=== PATIENT | male | born 1945 | race Caucasian/White ===

== ENCOUNTER 2018-12-05 11:11 | Inpatient (IN) | payer MEDICARE, OTHER ==
[~2018-12-05] VITALS: Ht 175.3 cm; Wt 102.0 kg
[~2018-12-05 11:11] MED LIST: ALPR1; ATEN50; ATOR20; DIOVAN; HYDACE5 PO
[2018-12-05 11:33] LABS: BASOPHILS ABSOLUTE AUTO 0.04 K/mm3 (0.00-0.23); BASOPHILS PERCENT AUTO 1 % (0-2); EOSINOPHILS ABSOLUTE AUTO 0.18 K/mm3 (0.00-0.68); EOSINOPHILS PERCENT AUTO 2 % (0-6); Hematocrit 43.2 % (37.0-53.0); Hemoglobin 14.3 g/dL (13.5-17.5); IMMATURE GRAN ABSOLUTE AUTO 0.04 K/mm3 (0.00-0.10); IMMATURE GRAN PERCENT AUTO 1 % (0-1); LYMPHOCYTES ABSOLUTE AUTO 1.03 K/mm3 (0.84-5.20); LYMPHOCYTES PERCENT AUTO 14 % (21-46); MONOCYTES ABSOLUTE AUTO 0.95 K/mm3 (0.16-1.47); MONOCYTES PERCENT AUTO 13 % (4-13); Mean Corpuscular HGB 32.8 pg (26.0-34.0); Mean Corpuscular HGB Conc 33.1 g/dL (31.5-36.5); Mean Corpuscular Volume 99 fL (80-100); Mean Platelet Volume 11.1 fL (9.1-12.4); NEUTROPHILS ABSOLUTE AUTO 5.37 K/mm3 (1.96-9.15); NEUTROPHILS PERCENT AUTO 71 % (41-73); Platelet Count 226 K/mm3 (150-400); RDW Coefficient Variation 13.7 % (11.7-14.2); RDW Standard Deviation 50.2 fL (35.1-46.3); Red Blood Cell Count 4.36 M/mm3 (4.30-5.90); White Blood Cell Count 7.61 K/mm3 (4.00-11.30)
[2018-12-05 11:50] LABS: Alanine Aminotransfer (ALT/SGP 21 U/L (12-78); Albumin, Blood 3.6 g/dL (3.4-5.0); Alk Phos 48 U/L (50-136); Anion Gap 6 mmol/L (6-16); Aspartate Aminotrans (AST/SGOT 13 U/L (12-37); Bilirubin, Total 0.5 mg/dL (0.1-1.0); Blood Urea Nitrogen 14 mg/dL (8-24); Bun/Creatinine Ratio 13.3 (12.0-20.0); CO2, Blood 26 mmol/L (21-32); Calcium, Blood 8.9 mg/dL (8.5-10.1); Chloride, Blood 106 mmol/L (98-108); Creatinine, Blood 1.05 mg/dL (0.60-1.20); Ethanol (Alcohol), Blood, Med <3 mg/dL; Globulin, Blood 3.7 g/dL (2.2-4.0); Glomerular Filtration Rate >60 (60-); Glucose, Blood 128 mg/dL (70-99); Potassium, Blood 4.4 mmol/L (3.5-5.5); Sodium, Blood 138 mmol/L (136-145); Total Protein, Blood 7.3 g/dL (6.4-8.2)
[2018-12-05 11:52] LABS: International Normalized Ratio 1.03; Prothrombin Time Results 10.9 Sec (9.7-11.5)
[2018-12-05 12:34] LABS: Source, Urine Clean Catch
[2018-12-05 12:41] LABS: Bilirubin, Urine Neg (Neg); Blood, Urine Neg (Neg); Glucose Qualitative, Urine Neg (Neg); Ketones, Urine Neg (Neg); Leukocyte Esterase, Urine Neg (Neg); Nitrite, Urine Neg (Neg); Protein, Urine 3+ (Neg); Urobilinogen, Urine NORM (Normal)
[2018-12-05 12:53] LABS: Appearance, Urine Clear (Clear); Color, Urine Yellow (P-Yellow)
[2018-12-05 12:55] LABS: Red Blood Cells, Urine 0-2 /hpf (0-2); White Blood Cells, Urine 0-2 /hpf (0-5)
[2018-12-05 12:56] LABS: Bacteria Rare /hpf; Squamous Epithelial Cells Rare /hpf (Few)
[2018-12-05] MEDS ORDERED: ATEN100 PO (13:39)
[2018-12-05] MEDS ORDERED: VARE1 PO (13:40)
[2018-12-05] MEDS ORDERED: TIZA4 PO (13:40)
[2018-12-05] MEDS ORDERED: ALPRAZOLAM0.5 MG PO (13:40)
[2018-12-05] MEDS ORDERED: LOSARTAN POTAS100 MG PO (13:41)
[2018-12-05] MEDS ORDERED: PRAV20 PO (13:41)
--- NOTE | 2018-12-05 18:04 | NUR ---
Echocardiogram completed.
--- NOTE | 2018-12-05 18:56 | NUR ---
SHIFT SUMMARY PT IS A NEW ADMISSION THIS AFTERNOON WITH A DIAGNOSIS OF CVA. PT HAS EXPRESSIVE APHASIA BUT PLEASANT. STATES "NO" WHEN ASKED IF IN PAIN. PT CONTINENT OF URINE AND USED URINAL WITH ASSISTANCE. ECHO DONE THIS EVENING AND DR. HENLEY INTO SEE PT THIS EVENING. TELE IN PLACE WITH RHYTHM OF AFIB IN 40-50'S. NO DISTRESS. BED ALARM ON FOR SAFETY. CALL LIGHT IN REACH. WILL CONTINUE TO MONITOR AND REPORT TO ONCOMING RN.
--- NOTE | 2018-12-05 21:39 | NUR ---
PCU MATH INSTRUCTOR ALERTED RN OF HR TRENDING DOWNWARD TO LOW OF 39 BPM (PREVIOUS WAS 40'S-50'S BPM) AND RECENT 3 SECOND PAUSE. HE REMAINS IN A.FIB AND HAD ATENOLOL IN ER PRIOR TO ADMISSION TO MEDICAL FLOOR. PT IS ASYMPTOMATIC OF CARDIAC DISTRESS AND DENIES PAIN, CP, DIZZYNESS/SYNCOPE WHEN OOB. MADE AWARE. NO NEW ORDERS AT THIS TIME BUT MD INTENDS TO REVIEW CHART AND CALL W/NEW ORDERS INDICATED. HE INSTRUCTED RN TO MONITOR PT CLOSELY AND ALERT W/ANY FURTHER ECTOPIES, PAUSES OR RYHTHM CHANGES OR IF PT BECOMES SYMPTOMATIC.
[2018-12-06 05:18] LABS: International Normalized Ratio 1.03; Prothrombin Time Results 10.9 Sec (9.7-11.5)
[2018-12-06 05:20] LABS: Anion Gap 7 mmol/L (6-16); Blood Urea Nitrogen 8 mg/dL (8-24); Bun/Creatinine Ratio 8.3 (12.0-20.0); CO2, Blood 29 mmol/L (21-32); Calcium, Blood 8.9 mg/dL (8.5-10.1); Chloride, Blood 104 mmol/L (98-108); Creatinine, Blood 0.96 mg/dL (0.60-1.20); Glomerular Filtration Rate >60 (60-); Glucose, Blood 113 mg/dL (70-99); Potassium, Blood 3.5 mmol/L (3.5-5.5); Sodium, Blood 140 mmol/L (136-145)
--- NOTE | 2018-12-06 05:33 | NUR ---
MADE AWARE OF ANOTHER 3.1 SECOND PAUSE AND HR CONTINUING TO TREND LOWER TO A RATE OF 30'S BUT SUSTAINING FOR LONGER PERIODS OF TIME PER TELEMETRY. PT REMAINS ASYMPTOMATIC OF CARDIAC DISTRESS, STATING NO TO Q'S REGARDING SOB OR PAIN. NEURO CHECKS ALSO REMAIN STABLE. MD INSTRUCTED STAFF TO CONTINUE MONITORING AND HAVE FOLLOW UP THIS AM. WILL ENSURE DAY STAFF ARE AWARE BUT WILL ALERT MD IF PT BECOMES SYMPTOMATIC.
--- NOTE | 2018-12-06 05:39 | NUR ---
SUMMARY: PT CONT'S TO HAVE EXPRESSIVE APHASIA AND IS AWARE OF SELF/FAMILY BUT HAS DIFFICULTY ANSWERING OTHER ORIENTATION Q'S. NEURO OBS ARE UNCHANGED T/O NOCTE. HE SEEMS TO ANSWER YES/NO Q'S CORRECTLY AND OCCASIONALLY SPEAKS IN SHORT SENTENCES BUT OFTEN BECOMES NONSENICAL W/OPEN ENDED Q'S. HE REPEATEDLY CURSES AND APPEARS TO BE FIXATED ON PHRASES SAYING "OH SHIT" AND "OH BOY". PT DENIES COMPLAINTS WHEN ATTEMPTING TO GAIN CLARIFICATION TO NEEDS. HE HAS EQUAL STREET CLEANER AND PEDAL STRENGTH WHILE IN BED BUT SEEMS TO LIST TO HIS R.SIDE OR BACKWARD W/R.SIDE WEAKNESS NOTED DURING ATTEMPTS TO STAND OR AMBULATE. PT TOLERATED USING FWW TO TOILET X1 THIS SHIFT BUT THEN WAS INSTRUCTED TO USE URINAL AT EOB FOR PT SAFETY. BED ALARM ON FOR OCCASIONAL IMPULSIVITY AND ATTEMPT OOB. SCHEDULED ATIVAN WAS RECIEVED AT START OF SHIFT BUT HE CONT'D TO BE ANXIOUS AND RESTLESS MOST OF THE NIGHT. CIWA IS STABLE AT 5 BUT HE HASN'T SLEPT AT ALL THIS SHIFT DESPITE ENCOURAGEMENT. PT ALSO CONT'S TO HAVE PERMISSIVE HYPERTENSION W/SBP>180'S BUT HR HAS TRENDED DOWNWARD. HE GOT LOW 34 BPM AND SUSTAINED 30'S AND 40'S BPM FOR LONGER PERIODS SHIFT PROGRESSED. HE ALSO HAD A 3 SEC AND 3.1 SEC PAUSE PER PCU PROCEDURES TECH. WAS MADE AWARE OF RATE CHANGE AND ECTOPIES BUT SINCE HE'S BEEN ASYMPTOMATIC OF ALL S/S CARDIAC DISTRESS HE INSTRUCTED TO HAVE DAY STAFF AND FOLLOW UP. NO ACUTE CHANGES OTHERWISE. WCTM AND REPORT TO DAY RN.
--- NOTE | 2018-12-06 16:46 | NUR ---
SHIFT SUMMARY PT WORKED WITH PHYSICAL THERAPY AND SPEECH THERAPY THIS AM. PT UP TO CHAIR FOR MEALS. PT HAS HAD TIMES WHERE HE'S EXPRESSIVE APHASIA HAS BEEN BETTER AND PT ABLE TO NAME THE HOSPITAL, CITY, DATE, ETC. BUT THEN DOES HAVE DIFFICULTY SPEAKING SOME WORDS AT TIMES. NO COMPLAINTS OF PAIN. PT HAS USED CALL LIGHT APPROPRIATELY AND HAS NOT TRIED TO GET OUT OF BED. BED ALARM ON FOR SAFETY. NO ACUTE CHANGES THIS SHIFT. CALL LIGHT IN REACH. WILL CONTINUE TO MONITOR AND REPORT TO ONCOMING RN.
--- NOTE | 2018-12-06 22:16 | NUR ---
PT HAD THE FOLLOWING 2150 2.3 SEC PAUSE ON TELEMETRY 2151 3.2 SEC PAUSE ON TELEMETRY; 178/76, 97.2--40--20, ASYMPTOMATIC. 2215 DR ALEMAN (TMD TEACHER FOR DR HENLEY ADVISED WITH NO ORDERS). CONTINUE TO MONITOR.
--- NOTE | 2018-12-07 03:33 | NUR ---
0320 PATIENT HAD OCCURENCES X 10 OF 2.6--3.[address] SPO[address] ALEMAN WITH ORDERS FOR CARDIOLOGY CONSULT.
--- NOTE | 2018-12-07 04:06 | NUR ---
12[address] CON[address]ULT CALLED FOR DR MARGO DE LA PAZ VIA ANSWERING SERVICE FOR TODAY, CHARGE NURSE, DENG GRIMM RN ADVISED WHOM ALSO NOTIFIED BUSINESS ANALYST CONSULTANT.
[2018-12-07 05:45] LABS: International Normalized Ratio 1.14; Prothrombin Time Results 11.9 Sec (9.7-11.5)
--- NOTE | 2018-12-07 06:33 | NUR ---
SHIFT SUMMARY: 73 Y/O OBESE MALE RESTED COMFORTABLY ALL SHIFT, PATIENT HAD NUMEROUS EPISODES VIA TELEMETRY OF PAUSES RANGING FROM 2.0--3.[address] MARIN NOTIFIED X 2 WITH ORDERS FOR CARDIOLOGY CONSULT TODAY. TELEMETRY REFLECTS A/FIB WITH HEART RATE RANGING FROM 36 TO MID 50'S, PT IS ASYMPMATIC, EXPRESSIVE APHASIA NOTED, DENIES PAIN OR NAUSEA, RIGHT HAND BUNDLER SEASONAL GREENERY WEAKER THAN LEFT, DENIES PAIN OR NAUSEA, CIWA SCORE 2, VOIDING CLEAR YELLOW FLUID VIA URINAL, BED ALARM APPLIED, BED LOW POSITION, CALL LIGHT AT SIDE.
--- NOTE | 2018-12-07 19:11 | NUR ---
PT. LYING IN BED WATCHING TV. EATING WELL TODAY. PT. STILL HAVING PROBLEMS WITH THE EXPRESSIVE APHASIA. RISIDUAL WEAKNESS OF RIGHT SIDE. TAKES MEDS WELL NO CHOKING OR COUGHING
--- NOTE | 2018-12-08 04:42 | NUR ---
SHIFT SUMMARY: 73 Y/O MALE RESTED COMFORTABLY ALL SHIFT WITH TELEMETRY REFLECTING FREQUENT PAUSES ALL SHIFT VARYING BETWEEMN 2.3--3.2 SECONDS WITH HEART RATE 40-52 IN A/FIB PER BATCH ATTENDANT MARQUIS, DENIES PAIN OR NAUSEA, EXPRESSIVE APHASIA NOTED, NPO AFTER MIDNIGHT FOR PENDING CARDIOLOGY PROCEDURE TODAY; BED ALARM APPLIED, BED LOW POSITION, CALL LIGHT AT SIDE.
[2018-12-08 05:09] LABS: International Normalized Ratio 1.27; Prothrombin Time Results 13.2 Sec (9.7-11.5)
[2018-12-08] MEDS ORDERED: ACET325 PO (10:49)
[2018-12-08] MEDS ORDERED: HYDR10 PO (10:50)
[2018-12-08] MEDS ORDERED: AMLO5 PO (10:50)
[2018-12-08] MEDS ORDERED: ASPI81CH PO (10:51)
[2018-12-08] MEDS ORDERED: HYDCHL25 PO (10:51)
[2018-12-08] MEDS ORDERED: CLOP75 PO (10:51)
[2018-12-08] MEDS ORDERED: Coumadin5 MG PO (10:52)
--- NOTE | 2018-12-08 16:15 | NUR ---
PT. DISCHARGED HOME ON H.H. ZIOPATCH PLACED BY [facility] JUST BEFORE THE PATIENT LEFT.PT. TO FOLLOW UP WITH PCP AND HAVE HAVE LABS DRAWN PRIOR TO APPT. PT. SPOUSE TOOK PATIENT HOME.
== END 2018-12-08 16:19 | disposition home health service (06) | DRG 65 ==
LOC: ER 11:11 → ERHOLD 11:12 → MEDS 15:52 → ERHOLD 15:53 → MEDS 16:45 → ENPENDDIS 12-08 10:00 → MEDS 12-08 16:19
PROVIDERS: Emergency Medicine; ADMIT Hospitalist
DX: I63.9 Cerebral infarction, unspecified (principal); G81.91 Hemiplegia, unspecified affecting right dominant side; I25.110 Atherosclerotic heart disease of native coronary artery with unstable angina pectoris; R47.01 Aphasia; I48.91 Unspecified atrial fibrillation; E78.5 Hyperlipidemia, unspecified; I10 Essential (primary) hypertension; R91.1 Solitary pulmonary nodule; F41.9 Anxiety disorder, unspecified; F10.20 Alcohol dependence, uncomplicated; Z87.891 Personal history of nicotine dependence; Z79.899 Other long term (current) drug therapy; Z95.1 Presence of aortocoronary bypass graft
CPT/HCPCS: 36415; 51701; 70450; 70496; 70498; 71046; 71250; 80048; 80053; 81001; 85025; 85610; 85730; 92507; 92523; 93005; 93010; 93306; 97112; 97116; 97162; 97530; 99285-25; G0480; Q9967

== ENCOUNTER 2019-03-07 02:07 | Observation (INO) | payer OTHER ==
[~2019-03-07] VITALS: Ht 175.3 cm; Wt 89.3 kg
[~2019-03-07 02:07] MED LIST changes: +ACET325 PO; +ALPRAZOLAM0.5 MG PO; +AMLO5 PO; +ASPI81CH PO; +ATEN100 PO; +CLOP75 PO; +Coumadin5 MG PO; +HYDCHL25 PO; +HYDR10 PO; +LOSARTAN POTAS100 MG PO; +PRAV20 PO; +TIZA4 PO; +VARE1 PO
[2019-03-07] MEDS ORDERED: PRAV20 PO (02:22)
[2019-03-07] MEDS ORDERED: LOSARTAN POTAS100 MG PO (02:22)
[2019-03-07] MEDS ORDERED: CLOP75 PO (02:22)
[2019-03-07] MEDS ORDERED: HYDCHL25 PO (02:22)
[2019-03-07] MEDS ORDERED: AMLO10 PO (02:22)
[2019-03-07] MEDS ORDERED: Aspirin EC81 MG PO (02:22)
[2019-03-07] MEDS ORDERED: CLARITIN10 MG PO (02:23)
[2019-03-07] MEDS ORDERED: TESSALON PERLE100 MG PO (02:23)
[2019-03-07] MEDS ORDERED: Bactrim Ds Tab1 EACH PO (02:23)
[2019-03-07] MEDS ORDERED: WARF5 PO (02:23)
[2019-03-07] MEDS ORDERED: CLON.1 PO (02:24)
[2019-03-07] MEDS ORDERED: Buspirone HCl15 MG PO (02:24)
[2019-03-07 03:00] LABS: BASOPHILS ABSOLUTE AUTO 0.01 K/mm3 (0.00-0.23); BASOPHILS PERCENT AUTO 0 % (0-2); EOSINOPHILS ABSOLUTE AUTO 0.07 K/mm3 (0.00-0.68); EOSINOPHILS PERCENT AUTO 1 % (0-6); Hematocrit 38.4 % (37.0-53.0); Hemoglobin 13.4 g/dL (13.5-17.5); IMMATURE GRAN ABSOLUTE AUTO 0.02 K/mm3 (0.00-0.10); IMMATURE GRAN PERCENT AUTO 0 % (0-1); LYMPHOCYTES ABSOLUTE AUTO 1.05 K/mm3 (0.84-5.20); LYMPHOCYTES PERCENT AUTO 14 % (21-46); MONOCYTES ABSOLUTE AUTO 0.78 K/mm3 (0.16-1.47); MONOCYTES PERCENT AUTO 10 % (4-13); Mean Corpuscular HGB 31.8 pg (26.0-34.0); Mean Corpuscular HGB Conc 34.9 g/dL (31.5-36.5); Mean Corpuscular Volume 91 fL (80-100); NEUTROPHILS ABSOLUTE AUTO 5.85 K/mm3 (1.96-9.15); NEUTROPHILS PERCENT AUTO 75 % (41-73); Platelet Count 278 K/mm3 (150-400); RDW Coefficient Variation 13.2 % (11.7-14.2); Red Blood Cell Count 4.22 M/mm3 (4.30-5.90); White Blood Cell Count 7.78 K/mm3 (4.00-11.30)
[2019-03-07 03:20] LABS: Alanine Aminotransfer (ALT/SGP 22 U/L (12-78); Albumin, Blood 4.1 g/dL (3.4-5.0); Albumin/Globulin Ratio 1.1 (0.8-1.8); Alk Phos 56 U/L (50-136); Anion Gap 10 mmol/L (6-16); Aspartate Aminotrans (AST/SGOT 14 U/L (12-37); Bilirubin, Total 0.5 mg/dL (0.1-1.0); Blood Urea Nitrogen 14 mg/dL (8-24); CO2, Blood 22 mmol/L (21-32); Calcium, Blood 8.8 mg/dL (8.5-10.1); Chloride, Blood 96 mmol/L (98-108); Creatinine, Blood 1.17 mg/dL (0.60-1.20); Globulin, Blood 3.8 g/dL (2.2-4.0); Glomerular Filtration Rate >60 (60-); Glucose, Blood 118 mg/dL (70-99); Potassium, Blood 3.4 mmol/L (3.5-5.5); Sodium, Blood 128 mmol/L (136-145); Total Protein, Blood 7.9 g/dL (6.4-8.2); Troponin I 0.018 ng/mL (0.000-0.040)
[2019-03-07 03:41] LABS: Prothrombin Time Results >90.0 Sec (9.7-11.5)
[2019-03-07 03:44] LABS: International Normalized Ratio No Calc
[2019-03-07 04:23] LABS: Adenovirus Not Detected (NOT DETECT); Bordetella pertussis Not Detected (NOT DETECT); Chlamydophila pneumoniae Not Detected (NOT DETECT); Coronavirus 229E Not Detected (NOT DETECT); Coronavirus HKU1 Not Detected (NOT DETECT); Coronavirus NL63 Not Detected (NOT DETECT); Coronavirus OC43 Not Detected (NOT DETECT); Human Metapneumovirus Not Detected (NOT DETECT); Human Rhinovirus/Enterovirus Not Detected (NOT DETECT); Influenza A Not Detected (NOT DETECT); Influenza A/2009-H1 Not Detected (NOT DETECT); Influenza A/H1 Not Detected (NOT DETECT); Influenza A/H3 Not Detected (NOT DETECT); Influenza B Not Detected (NOT DETECT); Mycoplasma pneumoniae Not Detected (NOT DETECT); Parainfluenza Virus 1 Not Detected (NOT DETECT); Parainfluenza Virus 2 Not Detected (NOT DETECT); Parainfluenza Virus 3 Not Detected (NOT DETECT); Parainfluenza Virus 4 Not Detected (NOT DETECT); Respiratory Syncytial Virus Not Detected (NOT DETECT)
[2019-03-07 12:53] LABS: International Normalized Ratio 3.2
[2019-03-07 15:31] LABS: Prothrombin Time Results 30.5 Sec (9.7-11.5)
--- NOTE | 2019-03-07 18:15 | NUR ---
SHIFT NOTE PT WAS ADMITTED FROM ER THIS AM WITH DX OF HEMOPTYSIS R/T HIGH INR X2 WEEKS. PT IS A/O X4, DOES SEEM TO HAVE A BIZARRE AFFECT. DENEIS CP OR SOB, DID HAVE 1 EPISDOE OF HEMOPTYSIS THIS AM ONLY. LS DIMENISHED T/O. VSS. SKIN PWD AND INTACT. PT UP TO BATHROOM WITH SBS c FWW. DENIES ANY PAIN. PT OTHERWISE HAS WATCHED TV T/O THE DAY.
--- NOTE | 2019-03-07 18:54 | NUR ---
REPORT TO PARAS CASTELLANOS
--- NOTE | 2019-03-07 20:26 | NUR ---
PT RESTING COMFORTABLY IN BED, PT THOUGHT PROCESS SLIGHTLY DISORGANIZED WITH EXTRA TIME REUIRED TO ORGANIZE THOUGHTS NOTED WHEN ASSESSED BY THIS NURSE, REQUIRES REDIRECTION AT TIMES.
[2019-03-08 03:40] LABS: BASOPHILS ABSOLUTE AUTO 0.02 K/mm3 (0.00-0.23); BASOPHILS PERCENT AUTO 0 % (0-2); EOSINOPHILS ABSOLUTE AUTO 0.21 K/mm3 (0.00-0.68); EOSINOPHILS PERCENT AUTO 3 % (0-6); Hematocrit 34.7 % (37.0-53.0); Hemoglobin 11.6 g/dL (13.5-17.5); IMMATURE GRAN ABSOLUTE AUTO 0.03 K/mm3 (0.00-0.10); IMMATURE GRAN PERCENT AUTO 0 % (0-1); LYMPHOCYTES PERCENT AUTO 15 % (21-46); MONOCYTES PERCENT AUTO 11 % (4-13); Mean Corpuscular HGB 31.5 pg (26.0-34.0); Mean Corpuscular HGB Conc 33.4 g/dL (31.5-36.5); NEUTROPHILS ABSOLUTE AUTO 5.75 K/mm3 (1.96-9.15); NEUTROPHILS PERCENT AUTO 71 % (41-73); Platelet Count 238 K/mm3 (150-400); RDW Coefficient Variation 13.7 % (11.7-14.2); RDW Standard Deviation 47.5 fL (35.1-46.3); Red Blood Cell Count 3.68 M/mm3 (4.30-5.90); White Blood Cell Count 8.11 K/mm3 (4.00-11.30)
[2019-03-08 03:41] LABS: Mean Corpuscular Volume 94 fL (80-100)
[2019-03-08 03:55] LABS: International Normalized Ratio 1.5; Prothrombin Time Results 15.3 Sec (9.7-11.5)
[2019-03-08 03:56] LABS: Anion Gap 7 mmol/L (6-16); Blood Urea Nitrogen 15 mg/dL (8-24); Bun/Creatinine Ratio 12.6 (12.0-20.0); CO2, Blood 23 mmol/L (21-32); Calcium, Blood 8.2 mg/dL (8.5-10.1); Chloride, Blood 101 mmol/L (98-108); Creatinine, Blood 1.19 mg/dL (0.60-1.20); Glomerular Filtration Rate >60 (60-); Glucose, Blood 106 mg/dL (70-99); Potassium, Blood 3.4 mmol/L (3.5-5.5); Sodium, Blood 131 mmol/L (136-145)
--- NOTE | 2019-03-08 05:36 | NUR ---
SHIFT SUMMARY: 74 Y/O MALE RESTED COMFORTABLY ALL SHIFT WITH TELEMETRY REFLECTS A/FIB WITHHEART RATE 60, DENIES CHEST PAIN, NAUSEA OR SOB, HAPPY AND COOPERATIVE, BED LOW POSITION WITH CALL LIGHT AT SIDE.
[2019-03-08] MEDS ORDERED: Tylenol325 MG PO (09:17)
--- NOTE | 2019-03-08 09:43 | NUR ---
ASSUMED CARE APPROXIMATELY 0700; PT ALERT AND CALM; PT ON RA; LUNG SOUNDS CLEAR T/O; O2 SATS >93; PT USES FWW; URINAL AT BEDSIDE; 20G R AC IV SALINE LOC; SPOUSE AT BEDSIDE REMINDING PT OF PO MEDS ADMINISTERED; CALL LIGHT IN REACH; BED IN LOWEST POSITION; WILL CONTINUE TO MONITOR AND ASSESS
--- NOTE | 2019-03-08 10:57 | NUR ---
PT PREPARED FOR DISCHARGE; IV REMOVED AND INTACT; PT DRESSED SELF; SPOUSE W/ PT; MEDICATIONS REVIEWED AND PT EDUCATED ON MAKING FOLLOW UP APPOINTMENT, PT VERBALIZED UNDERSTANDING AND SPOUSE AGREED; PT WHEELED OUT BY ABORIGINAL COMMUNITY COUNCIL MEMBER;
== END 2019-03-08 11:50 | disposition home or self-care (01) ==
LOC: ER 02:07 → ERHOLD 02:08 → ER 05:09 → ERHOLD 05:09 → PCU 06:52
PROVIDERS: Emergency Medicine; ADMIT Hospitalist
DX: R04.2 Hemoptysis (principal); J43.9 Emphysema, unspecified; K44.9 Diaphragmatic hernia without obstruction or gangrene; K76.89 Other specified diseases of liver; I10 Essential (primary) hypertension; E78.5 Hyperlipidemia, unspecified; I69.351 Hemiplegia and hemiparesis following cerebral infarction affecting right dominant side; F41.9 Anxiety disorder, unspecified; I48.91 Unspecified atrial fibrillation; E87.1 Hypo-osmolality and hyponatremia; R91.1 Solitary pulmonary nodule; I69.320 Aphasia following cerebral infarction; Z88.8 Allergy status to other drugs, medicaments and biological substances; Z79.82 Long term (current) use of aspirin; Z79.02 Long term (current) use of antithrombotics/antiplatelets; Z79.01 Long term (current) use of anticoagulants; Z87.891 Personal history of nicotine dependence; Z79.899 Other long term (current) drug therapy
CPT/HCPCS: 0099U; 36415; 71046; 71260; 80048; 80053; 83690; 84484; 85025; 85610; 86900; 86901; 93005; 93010; J7030; P9059; Q9967

== ENCOUNTER → 2019-06-29 | Outpatient (CLI) | payer OTHER ==
[~2019-06-29] MED LIST changes: +Aspirin EC81 MG PO; +Bactrim Ds Tab1 EACH PO; +Buspirone HCl15 MG PO; +CLARITIN10 MG PO; +CLON.1 PO; +LOSARTAN POTAS100 M1 PO; +Seroquel Xr50 MG PO; +TESSALON PERLE100 MG PO; +Tylenol325 MG PO; +WARF5 PO
== END | disposition home or self-care (01) ==
LOC: LAB 18:11 → LAB SHORT 18:11
DX: R31.9 Hematuria, unspecified (principal)
CPT/HCPCS: 87086

== ENCOUNTER 2019-11-29 14:04 | Inpatient (IN) | payer MEDICARE, OTHER ==
[~2019-11-29] VITALS: Ht 177.8 cm; Wt 92.0 kg
[~2019-11-29 14:04] MED LIST changes: -Aspirin EC81 MG PO; -LOSARTAN POTAS100 M1 PO; -WARF5 PO
[2019-11-29 14:17] LABS: pH Blood Arterial 7.45 (7.35-7.45)
[2019-11-29 14:18] LABS: PCO2 Arterial 37.1 mmHg (35-45); PO2 Arterial 64.8 mmHg (80-100)
[2019-11-29 14:20] LABS: Calcium, Ionized (POC) 1.05 mmol/L (1.10-1.46); Chloride (POC) 99 mmol/L (98-108); Creatinine (POC) 2.6 mg/dL (0.8-1.3); Glucose (ISTAT POC) 136 mg/dL (70-99); Hemoglobin (POC) 11.2 g/dL (13.5-17.5); Potassium (POC) 5.1 mmol/L (3.5-5.5); Sodium (POC) 136 mmol/L (135-148); Total CO2 (POC) 28 mmol/L (21-32)
[2019-11-29 14:42] LABS: BASOPHILS ABSOLUTE AUTO 0.03 K/mm3 (0.00-0.23); BASOPHILS PERCENT AUTO 0 % (0-2); EOSINOPHILS ABSOLUTE AUTO 0.02 K/mm3 (0.00-0.68); EOSINOPHILS PERCENT AUTO 0 % (0-6); Hematocrit 30.7 % (37.0-53.0); Hemoglobin 9.6 g/dL (13.5-17.5); IMMATURE GRAN PERCENT AUTO 1 % (0-1); LYMPHOCYTES ABSOLUTE AUTO 0.65 K/mm3 (0.84-5.20); LYMPHOCYTES PERCENT AUTO 4 % (21-46); MONOCYTES ABSOLUTE AUTO 1.33 K/mm3 (0.16-1.47); MONOCYTES PERCENT AUTO 8 % (4-13); Mean Corpuscular HGB 30.2 pg (26.0-34.0); Mean Corpuscular HGB Conc 31.3 g/dL (31.5-36.5); Mean Corpuscular Volume 97 fL (80-100); Mean Platelet Volume 10.6 fL (9.1-12.4); NEUTROPHILS ABSOLUTE AUTO 15.64 K/mm3 (1.96-9.15); NEUTROPHILS PERCENT AUTO 88 % (41-73); Platelet Count 535 K/mm3 (150-400); RDW Coefficient Variation 13.9 % (11.7-14.2); RDW Standard Deviation 49.7 fL (35.1-46.3); Red Blood Cell Count 3.18 M/mm3 (4.30-5.90); White Blood Cell Count 17.77 K/mm3 (4.00-11.30)
[2019-11-29 14:55] LABS: Alanine Aminotransfer (ALT/SGP 26 U/L (12-78); Albumin, Blood 2.8 g/dL (3.4-5.0); Albumin/Globulin Ratio 0.6 (0.8-1.8); Alk Phos 55 U/L (50-136); Anion Gap 5 mmol/L (6-16); Aspartate Aminotrans (AST/SGOT 19 U/L (12-37); Bilirubin, Total 0.5 mg/dL (0.1-1.0); Blood Urea Nitrogen 52 mg/dL (8-24); Bun/Creatinine Ratio 20.7 (12.0-20.0); CO2, Blood 30 mmol/L (21-32); Calcium, Blood 8.5 mg/dL (8.5-10.1); Chloride, Blood 102 mmol/L (98-108); Creatinine, Blood 2.51 mg/dL (0.60-1.20); Globulin, Blood 4.8 g/dL (2.2-4.0); Glomerular Filtration Rate 27 (60-); Glucose, Blood 135 mg/dL (70-99); Magnesium, Blood 3.1 mg/dL (1.6-2.4); Potassium, Blood 4.8 mmol/L (3.5-5.5); Sodium, Blood 137 mmol/L (136-145); Total Protein, Blood 7.6 g/dL (6.4-8.2); Troponin I <0.015 ng/mL (0.000-0.040)
[2019-11-29 15:10] LABS: International Normalized Ratio 1.63
[2019-11-29 15:33] LABS: Source, Urine Catheter
[2019-11-29 15:44] LABS: Appearance, Urine Clear (Clear); Bilirubin, Urine Neg (Neg); Blood, Urine 2+ (Neg); Color, Urine Yellow (P-Yellow); Glucose Qualitative, Urine Neg (Neg); Ketones, Urine Neg (Neg); Leukocyte Esterase, Urine Neg (Neg); Nitrite, Urine Neg (Neg); Protein, Urine 1+ (Neg); Specific Gravity, Urine 1.005 (1.003-1.022); Urobilinogen, Urine NORM (Normal)
[2019-11-29 16:13] LABS: White Blood Cells, Urine 0-2 /hpf (0-5)
[2019-11-29 16:14] LABS: Bacteria Rare /hpf; Squamous Epithelial Cells Not Seen /hpf (Few)
[2019-11-29] MEDS ORDERED: LOSARTAN POTAS100 M1 PO (16:28)
[2019-11-29] MEDS ORDERED: WARF5 PO (16:29)
[2019-11-29] MEDS ORDERED: AMLO5 PO (16:30)
[2019-11-29] MEDS ORDERED: HYDCHL25 PO (16:31)
[2019-11-29] MEDS ORDERED: PRAV20 PO (16:31)
[2019-11-29] MEDS ORDERED: CLOP75 PO (16:31)
[2019-11-29] MEDS ORDERED: TAMSULOSIN HCL0.4 M1 PO (16:32)
[2019-11-29] MEDS ORDERED: Aspirin EC81 MG PO (16:33)
[2019-11-29 17:06] LABS: U Amphetamine Screen Not Detected; U Barbituate Screen Not Detected; U Benzodiazapine Screen DETECTED; U Buprenorphine Screen Not Detected; U Cannabinoids Screen DETECTED; U Cocaine Screen Not Detected; U Methadone Screen Not Detected; U Methamphetamine Screen Not Detected; U Opiates Screen Not Detected; U Oxycodone Screen DETECTED; U Phencyclidine Screen Not Detected; U Propoxyphene Screen Not Detected
[2019-11-29 17:36] LABS: PO2 Arterial 59.4 mmHg (80-100); pH Blood Arterial 7.39 (7.35-7.45)
[2019-11-29 20:37] LABS: Albumin, Blood 2.4 g/dL (3.4-5.0); Anion Gap 8 mmol/L (6-16); Blood Urea Nitrogen 50 mg/dL (8-24); Bun/Creatinine Ratio 25.4 (12.0-20.0); CO2, Blood 25 mmol/L (21-32); Chloride, Blood 105 mmol/L (98-108); Creatinine, Blood 1.97 mg/dL (0.60-1.20); Glomerular Filtration Rate 35 (60-); Glucose, Blood 117 mg/dL (70-99); Phosphorus, Blood 3.9 mg/dL (2.5-4.9); Potassium, Blood 4.5 mmol/L (3.5-5.5); Sodium, Blood 138 mmol/L (136-145)
[2019-11-30 00:55] LABS: Albumin, Blood 2.4 g/dL (3.4-5.0); Anion Gap 6 mmol/L (6-16); Blood Urea Nitrogen 43 mg/dL (8-24); Bun/Creatinine Ratio 25.1 (12.0-20.0); CO2, Blood 27 mmol/L (21-32); Chloride, Blood 109 mmol/L (98-108); Creatinine, Blood 1.71 mg/dL (0.60-1.20); Glomerular Filtration Rate 42 (60-); Glucose, Blood 111 mg/dL (70-99); Phosphorus, Blood 3.4 mg/dL (2.5-4.9); Potassium, Blood 4.2 mmol/L (3.5-5.5); Sodium, Blood 142 mmol/L (136-145)
--- NOTE | 2019-11-30 04:39 | NUR ---
SHIFT SUMMARY PATIENT SLEPT WELL THROUGH NIGHT. PATIENT WOKE UP AROUND 01:30, TURNED NARCAN DRIP OFF, PATIENT WAKES TO VERBAL STIMULI, MOSTLY ORIENTED, STILL SOMWEWHAT CONFUSED TO DATE. MOVES ALL EXTREMETIES, PERRLA. NO C/O PAIN AT THIS TIME. DID HAVE 1 BOUT OF NAUSEA, CONTROLLED WITH PRN ZOFRAN. ASSESSMENT IS CHARTED. VSS. WILL CONTINUE TO MONITOR.
[2019-11-30 05:08] LABS: BASOPHILS ABSOLUTE AUTO 0.03 K/mm3 (0.00-0.23); BASOPHILS PERCENT AUTO 0 % (0-2); EOSINOPHILS ABSOLUTE AUTO 0.07 K/mm3 (0.00-0.68); EOSINOPHILS PERCENT AUTO 0 % (0-6); Hematocrit 34.6 % (37.0-53.0); Hemoglobin 10.7 g/dL (13.5-17.5); IMMATURE GRAN ABSOLUTE AUTO 0.06 K/mm3 (0.00-0.10); IMMATURE GRAN PERCENT AUTO 0 % (0-1); LYMPHOCYTES ABSOLUTE AUTO 0.58 K/mm3 (0.84-5.20); LYMPHOCYTES PERCENT AUTO 4 % (21-46); MONOCYTES ABSOLUTE AUTO 1.11 K/mm3 (0.16-1.47); MONOCYTES PERCENT AUTO 7 % (4-13); Mean Corpuscular HGB 29.8 pg (26.0-34.0); Mean Corpuscular HGB Conc 30.9 g/dL (31.5-36.5); Mean Corpuscular Volume 96 fL (80-100); Mean Platelet Volume 10.3 fL (9.1-12.4); NEUTROPHILS ABSOLUTE AUTO 14.82 K/mm3 (1.96-9.15); NEUTROPHILS PERCENT AUTO 89 % (41-73); Platelet Count 538 K/mm3 (150-400); RDW Coefficient Variation 14.1 % (11.7-14.2); RDW Standard Deviation 50.3 fL (35.1-46.3); Red Blood Cell Count 3.59 M/mm3 (4.30-5.90); White Blood Cell Count 16.67 K/mm3 (4.00-11.30)
[2019-11-30 05:37] LABS: Albumin, Blood 2.5 g/dL (3.4-5.0); Anion Gap 5 mmol/L (6-16); Blood Urea Nitrogen 39 mg/dL (8-24); CO2, Blood 24 mmol/L (21-32); Calcium, Blood 8.2 mg/dL (8.5-10.1); Chloride, Blood 111 mmol/L (98-108); Glomerular Filtration Rate 49 (60-); Glucose, Blood 138 mg/dL (70-99); Phosphorus, Blood 2.8 mg/dL (2.5-4.9); Potassium, Blood 4.6 mmol/L (3.5-5.5); Sodium, Blood 140 mmol/L (136-145)
--- NOTE | 2019-11-30 07:15 | NUR ---
ASSUMED CARE BEDSIDE REPORT RECIEVED. PT IS AWAKE, ALERT, AND CONFUSED. PT FOLLOWS SOME DIRECTIONS APPROPRIATELY. PT IS DIFFICULT TO REDIRECT AT TIMES. PT IS IMPULSIVE, PT ATTEMPTS TO GET OUT OF BED. BED ALARM ON. VITAL SIGNS STABLE. PT ON ROOM AIR. RIGHT SIDE FACIAL DROOP NOTED. PT WITH LAP SITES NOTED TO ABD OPEN TO AIR. ATTENDS IN PLACE. WILL CONTINUE TO MONITOR.
--- NOTE | 2019-11-30 17:20 | NUR ---
TRANSFER TO MEDICAL NO ACUTE CHANGES IN PT CONDITION. REPORT CALLED AND ALL QUESTIONS ANSWERED. PT TO BE TRANSFERED TO ROOM 349 WITH HEALTH SERVICES ADMINISTRATOR ASSISTANCE. ALL PT MEDS AND BELONGINGS SENT WITH PT.
--- NOTE | 2019-11-30 18:25 | NUR ---
PT ARRIVED TO ROOM FROM ICU AT APPROX 1730 VIA HIS BED. ATTENDS CHANGED ON ARRIVAL. PT REPORTS TENDERNESS TO TESTICLES WHEN ATTENDS PLACED. LAP INCISIONS INTACT. ORIENTED TO ROOM AND CALL SYSTEM. CURRENTLY EATING SUPPER. WILL REPORT CURRENT CONDITION TO ONCOMING SHIFT.
--- NOTE | 2019-12-01 04:45 | NUR ---
SHIFT SUMMARY PT RESTS OFF AND ON T/O THE NIGHT. PT A/OX3 ANSWERS MY QUESTIONS APPROPRIATELY, BUT IS VERY FORGETFUL AND IMPULSIVE. CLIMBS OUT OF BED WITHOUT USING CALL LIGHT. INCONTINENT OF URINE. ATTENDS IN PLACE. PT AMBULATED TO THE BATHROOM ONCE THIS SHIFT. HE STATED THAT HE NEEDED TO HAVE A BM, BUT WAS UNABLE TO GO. LAP SITE TO ABD DRY AND UNCHANGED. IVF INFUSING ORDERED. NO ACUTE CHANGES. BED IN LOWEST POSITION, CALL LIGHT WITHIN REACH.
[2019-12-01 08:33] LABS: BASOPHILS ABSOLUTE AUTO 0.03 K/mm3 (0.00-0.23); BASOPHILS PERCENT AUTO 0 % (0-2); EOSINOPHILS ABSOLUTE AUTO 0.36 K/mm3 (0.00-0.68); EOSINOPHILS PERCENT AUTO 3 % (0-6); Hematocrit 32.3 % (37.0-53.0); Hemoglobin 10.2 g/dL (13.5-17.5); IMMATURE GRAN ABSOLUTE AUTO 0.06 K/mm3 (0.00-0.10); IMMATURE GRAN PERCENT AUTO 0 % (0-1); LYMPHOCYTES ABSOLUTE AUTO 0.92 K/mm3 (0.84-5.20); LYMPHOCYTES PERCENT AUTO 7 % (21-46); MONOCYTES ABSOLUTE AUTO 0.98 K/mm3 (0.16-1.47); MONOCYTES PERCENT AUTO 7 % (4-13); Mean Corpuscular HGB 30.1 pg (26.0-34.0); Mean Corpuscular HGB Conc 31.6 g/dL (31.5-36.5); Mean Corpuscular Volume 95 fL (80-100); Mean Platelet Volume 9.9 fL (9.1-12.4); NEUTROPHILS ABSOLUTE AUTO 11.74 K/mm3 (1.96-9.15); NEUTROPHILS PERCENT AUTO 83 % (41-73); Platelet Count 604 K/mm3 (150-400); RDW Coefficient Variation 14.1 % (11.7-14.2); RDW Standard Deviation 49.1 fL (35.1-46.3); Red Blood Cell Count 3.39 M/mm3 (4.30-5.90); White Blood Cell Count 14.09 K/mm3 (4.00-11.30)
[2019-12-01 08:50] LABS: Alanine Aminotransfer (ALT/SGP 24 U/L (12-78); Albumin, Blood 2.6 g/dL (3.4-5.0); Albumin/Globulin Ratio 0.6 (0.8-1.8); Alk Phos 56 U/L (50-136); Anion Gap 5 mmol/L (6-16); Aspartate Aminotrans (AST/SGOT 16 U/L (12-37); Bilirubin, Total 0.6 mg/dL (0.1-1.0); Blood Urea Nitrogen 19 mg/dL (8-24); Bun/Creatinine Ratio 17.8 (12.0-20.0); CO2, Blood 26 mmol/L (21-32); Calcium, Blood 8.4 mg/dL (8.5-10.1); Chloride, Blood 110 mmol/L (98-108); Creatinine, Blood 1.07 mg/dL (0.60-1.20); Globulin, Blood 4.5 g/dL (2.2-4.0); Glomerular Filtration Rate >60 (60-); Glucose, Blood 113 mg/dL (70-99); Magnesium, Blood 2.3 mg/dL (1.6-2.4); Potassium, Blood 3.7 mmol/L (3.5-5.5); Sodium, Blood 141 mmol/L (136-145); Total Protein, Blood 7.1 g/dL (6.4-8.2)
[2019-12-01 11:03] LABS: Source, Urine Catheter
[2019-12-01 11:07] LABS: Bilirubin, Urine Neg (Neg); Blood, Urine Neg (Neg); Glucose Qualitative, Urine Neg (Neg); Ketones, Urine Neg (Neg); Leukocyte Esterase, Urine Neg (Neg); Nitrite, Urine Neg (Neg); Protein, Urine 1+ (Neg); Specific Gravity, Urine 1.005 (1.003-1.022); Urobilinogen, Urine NORM (Normal)
[2019-12-01 11:09] LABS: Appearance, Urine Clear (Clear); Color, Urine Yellow (P-Yellow)
[2019-12-01] MEDS ORDERED: ACET325 PO (15:29)
--- NOTE | 2019-12-01 17:03 | NUR ---
DISCHARGE SUMMARY 0800--PT UNABLE TO URINATE, BLADDER SCAN SHOWED 1426, PLACED POSADAS WITH 1600ML OUTPUT. CESIA LEFT WITH HIS BY WC TO GO HOME. . PIVS REMOVED, ONLY NEW MED IS TYLENOL, SO THEY DIDN'T NEED IT FAXED TO PHARMACY. PCP OFFICE CLOSED, MESSAGE LEFT FOR PCP OFFICE TO CALL TO SCHEDULE. F/U MADE WITH UROLOGY. PT AND VERY FAMILIAR WITH HOME CARE FOR POSADAS WITH LEG BAG, EDUCATION DONE. SENT HOME WITH URINAL TO EMPTY LEG BAG AND EXTRA LEG BACK. SBA TO BR, HAD BM. EDUCATED ON HOLDING WARFARIN AND PLAVIX AND ASPIRIN UNTIL PCP DECIDES WHEN TO RESTART DUE TO RESOLVING HEMATOMA.
== END 2019-12-01 16:44 | disposition home health service (06) | DRG 91 ==
LOC: ER 14:04 → ICUW 14:05 → MEDS 11-30 11:49 → ICUW 11-30 12:19 → MEDS 11-30 17:26
PROVIDERS: Emergency Medicine; Family Medicine; Nurse Practitioner Acute Care; ADMIT Family Medicine
DX: G92 Toxic encephalopathy (principal); J96.01 Acute respiratory failure with hypoxia; N17.9 Acute kidney failure, unspecified; E27.49 Other adrenocortical insufficiency; Z20.828 Contact with and (suspected) exposure to other viral communicable diseases; Z85.528 Personal history of other malignant neoplasm of kidney; Z90.5 Acquired absence of kidney; I48.91 Unspecified atrial fibrillation; Z86.73 Personal history of transient ischemic attack (TIA), and cerebral infarction without residual deficits; I10 Essential (primary) hypertension; Z85.46 Personal history of malignant neoplasm of prostate; R33.9 Retention of urine, unspecified; E78.5 Hyperlipidemia, unspecified; T40.2X5A Adverse effect of other opioids, initial encounter; Z87.891 Personal history of nicotine dependence
CPT/HCPCS: 36415; 36600; 51701; 70450; 70551; 71045; 74176; 80047; 80053; 80069; 81001; 82803; 83605; 83735; 84100; 84443; 84484; 85014; 85025; 85610; 87040; 92610; 93005; 93010; 96361; 96361-59; 96374-59; 96375; 96376; 97162; 97165; 97530; 97535; 99285-25; A9270-GY; G0378; J2310; J2405; J7030; J7040

== ENCOUNTER 2020-09-28 18:09 | Observation (INO) | payer OTHER ==
[~2020-09-28] VITALS: Ht 175.3 cm; Wt 99.8 kg
[~2020-09-28 18:09] MED LIST changes: +Aspirin EC81 MG PO; +LOSARTAN POTAS100 M1 PO; +TAMSULOSIN HCL0.4 M1 PO; +WARF5 PO
[2020-09-28] MEDS ORDERED: TIZA4 PO (18:33)
[2020-09-28] MEDS ORDERED: WARF5 PO (18:34)
[2020-09-28] MEDS ORDERED: WARF7.5 PO (18:35)
[2020-09-28] MEDS ORDERED: AMLO5 PO ×2 (18:36→18:38)
[2020-09-28] MEDS ORDERED: CLOP75 PO (18:37)
[2020-09-28 19:54] LABS: BASOPHILS ABSOLUTE AUTO 0.03 K/mm3 (0.00-0.23); BASOPHILS PERCENT AUTO 0 % (0-2); EOSINOPHILS ABSOLUTE AUTO 0.21 K/mm3 (0.00-0.68); EOSINOPHILS PERCENT AUTO 2 % (0-6); Hematocrit 25.7 % (37.0-53.0); Hemoglobin 7.8 g/dL (13.5-17.5); IMMATURE GRAN ABSOLUTE AUTO 0.02 K/mm3 (0.00-0.10); IMMATURE GRAN PERCENT AUTO 0 % (0-1); LYMPHOCYTES PERCENT AUTO 8 % (21-46); MONOCYTES ABSOLUTE AUTO 1.14 K/mm3 (0.16-1.47); MONOCYTES PERCENT AUTO 12 % (4-13); Mean Corpuscular HGB 24.8 pg (26.0-34.0); Mean Corpuscular HGB Conc 30.4 g/dL (31.5-36.5); Mean Corpuscular Volume 82 fL (80-100); Mean Platelet Volume 11.1 fL (9.1-12.4); NEUTROPHILS ABSOLUTE AUTO 7.46 K/mm3 (1.96-9.15); NEUTROPHILS PERCENT AUTO 77 % (41-73); NRBC ABSOLUTE 0.02 K/mm3 (0.00-0.02); NRBC Auto 0.2 /100 WBC (0.0-0.2); Platelet Count 298 K/mm3 (150-400); RDW Coefficient Variation 18.1 % (11.7-14.2); RDW Standard Deviation 53.1 fL (35.1-46.3); Red Blood Cell Count 3.14 M/mm3 (4.30-5.90); White Blood Cell Count 9.66 K/mm3 (4.00-11.30)
[2020-09-28 20:17] LABS: Albumin, Blood 3.4 g/dL (3.4-5.0); Albumin/Globulin Ratio 0.9 (0.8-1.8); Bilirubin, Total 0.3 mg/dL (0.1-1.0); Bun/Creatinine Ratio 26.1 (12.0-20.0); Calcium, Blood 8.2 mg/dL (8.5-10.1); Creatinine, Blood 1.57 mg/dL (0.60-1.20); Globulin, Blood 3.8 g/dL (2.2-4.0); Magnesium, Blood 2.1 mg/dL (1.6-2.4); Phosphorus, Blood 4.3 mg/dL (2.5-4.9); Potassium, Blood 4.8 mmol/L (3.5-5.5); Total Protein, Blood 7.2 g/dL (6.4-8.2)
[2020-09-28 22:09] LABS: International Normalized Ratio 1.88; Prothrombin Time Results 19.6 Sec (9.7-11.5)
[2020-09-28 23:13] LABS: Hematocrit 25.7 % (37.0-53.0); Hemoglobin 7.9 g/dL (13.5-17.5)
--- NOTE | 2020-09-28 23:14 | NUR ---
ADMITTED 75 YR OLD MALE TO FLOOR FROM THE ED WITH DX OF GI BLEED WITH LEG CRAMPS THAT HE APPEARS TO HAVE HAD FOR A FEW WEEKS PRIOR TO ADMIT. ORIENTED TO CALL LIGHT AND AGREES TO USE IT IF NEED ARRISE.
--- NOTE | 2020-09-29 01:46 | NUR ---
MED DUDE RANCH MANAGER REPORTS PT HR DROPPING INTO THE 30'S. UPON BEDSIDE ASSESSMENT, ASYMPTOMATIC. NO NOTED S/S ACUTE DISTRESS. IVF INFUSING. DUDE RANCH MANAGER REPORTS A FIB (PT EARLIER VOICED HX OF AFIB WELL). CALL LIGHT IN REACH
--- NOTE | 2020-09-29 02:05 | NUR ---
[employer] REPORTED HR IN THE 30'S, PT REMAINS ASYMPTOMATIC. CALL PLACED TO MD BOND ANALYST. MD INSTRUCTED TO "WATCH" PT. CALL LIGHT IN REACH
--- NOTE | 2020-09-29 03:27 | NUR ---
PT CONTINUES TO HAVE HR IN THE 30'S AND 40'S, ONE WITH A "PAUSE" - TELE STRIP SENT TO FLOOR. DR MARIN ON FLOOR, REVIEWED SAID STRIP AND ACKNOWLEDGED IT BUT GAVE NO ADDITIONAL ORDERS. PT REMAINS ASYMPTOMATIC. CALL LIGHT IN REACH
--- NOTE | 2020-09-29 03:54 | NUR ---
STUDENT SUCCESS COACH SUMMARY ADMITTED LAST NIGHT WITH DX OF GI BLEED, BUT MAIN COMPLAINT WAS LEG CRAMPS. PLACED ON IVF AND RECEIVED ANALGESICS PER JUN. HEART RATE SLOW WITH A FIB. (30'S - 40'S) MD AWARE, REVIEWED TELE STRIP THAT INCLUDED A PAUSE WELL. STATED TO WATCH PT. PT REMAINS ASYMPTOMATIC. CALL LIGHT IN REACH. WILL CONTINUE TO MONITOR
[2020-09-29 07:27] LABS: BASOPHILS ABSOLUTE AUTO 0.03 K/mm3 (0.00-0.23); BASOPHILS PERCENT AUTO 1 % (0-2); EOSINOPHILS PERCENT AUTO 5 % (0-6); Hematocrit 25.9 % (37.0-53.0); Hemoglobin 7.9 g/dL (13.5-17.5); IMMATURE GRAN ABSOLUTE AUTO 0.01 K/mm3 (0.00-0.10); IMMATURE GRAN PERCENT AUTO 0 % (0-1); LYMPHOCYTES ABSOLUTE AUTO 1.05 K/mm3 (0.84-5.20); LYMPHOCYTES PERCENT AUTO 18 % (21-46); MONOCYTES ABSOLUTE AUTO 0.81 K/mm3 (0.16-1.47); MONOCYTES PERCENT AUTO 14 % (4-13); Mean Corpuscular HGB 24.8 pg (26.0-34.0); Mean Corpuscular HGB Conc 30.5 g/dL (31.5-36.5); Mean Corpuscular Volume 81 fL (80-100); Mean Platelet Volume 11.1 fL (9.1-12.4); NEUTROPHILS ABSOLUTE AUTO 3.53 K/mm3 (1.96-9.15); NEUTROPHILS PERCENT AUTO 62 % (41-73); Platelet Count 294 K/mm3 (150-400); RDW Coefficient Variation 18.1 % (11.7-14.2); RDW Standard Deviation 53.1 fL (35.1-46.3); Red Blood Cell Count 3.18 M/mm3 (4.30-5.90); White Blood Cell Count 5.73 K/mm3 (4.00-11.30)
[2020-09-29 07:48] LABS: Albumin, Blood 3.4 g/dL (3.4-5.0); Albumin/Globulin Ratio 0.9 (0.8-1.8); Bilirubin, Total 0.3 mg/dL (0.1-1.0); Creatinine, Blood 1.48 mg/dL (0.60-1.20); Globulin, Blood 3.6 g/dL (2.2-4.0); Potassium, Blood 4.3 mmol/L (3.5-5.5)
[2020-09-29 09:15] LABS: SARS-Cov-2 (COVID-19) PCR, MMC NEGATIVE (NEGATIVE)
--- NOTE | 2020-09-29 09:29 | NUR ---
09/29/20 0929 Kimberly Luevano History, Chart, Medications and Allergies reviewed before start of procedure. Patient confirms NPO status and agrees with scheduled surgery. 3-LEAD EKG REVIEWED WITH PHYSICIAN PRIOR TO START OF PROCEDURE. MONITOR INTACT WITH CONTINUOUS PULSE OXIMETRY AND INTERMITTENT BP. PATIENT DETERMINED TO BE ASA APPROPRIATE FOR PROPOFOL SEDATION PRIOR TO START OF PROCEDURE BY . Bite Block Placed AND REMOVED AT END OF CASE.
[2020-09-29 13:11] LABS: Hematocrit 25.8 % (37.0-53.0); Hemoglobin 7.8 g/dL (13.5-17.5)
[2020-09-29] MEDS ORDERED: PANT20 PO (15:18)
[2020-09-29 15:25] LABS: Hematocrit 25.7 % (37.0-53.0)
--- NOTE | 2020-09-29 17:41 | NUR ---
PT DISCHARGED THE PT VERBALIZED UNDERSTANDING OF THE DC INSTRUCTIONS, THE PTS PRESCRIPTION WAS FAXED TO [facility], THE PT WAS REMINDED TO CALL HIS PCP ON WEDNESDAY TO ESTABLISH A POST HOSPITAL REVIEW APPOINTMENT, THE WAS TRANSFERED VIA WHEELCHAIR ACCOMPANIED BY THE DAIRY HUSBANDMAN AND HIS
== END 2020-09-29 15:40 | disposition home or self-care (01) ==
LOC: ER 18:09 → MEDS 18:10
PROVIDERS: Internal Medicine; Internal Medicine Gastroenterology; Physician Assistant; ADMIT Internal Medicine
PROC: 0D578ZZ Destruction of Stomach, Pylorus, Via Natural or Artificial Opening Endoscopic (ICD-10-PCS; principal; 2020-09-29 09:00)
PROC: 0D598ZZ Destruction of Duodenum, Via Natural or Artificial Opening Endoscopic (ICD-10-PCS; principal; 2020-09-29 09:00)
PROC: 0D558ZZ Destruction of Esophagus, Via Natural or Artificial Opening Endoscopic (ICD-10-PCS; principal; 2020-09-29 09:00)
DX: K31.811 Angiodysplasia of stomach and duodenum with bleeding (principal); K22.11 Ulcer of esophagus with bleeding; K92.1 Melena; D64.9 Anemia, unspecified; D12.6 Benign neoplasm of colon, unspecified; Z20.822 Contact with and (suspected) exposure to COVID-19; Q39.9 Congenital malformation of esophagus, unspecified; T39.015A Adverse effect of aspirin, initial encounter; I10 Essential (primary) hypertension; I48.91 Unspecified atrial fibrillation; M19.90 Unspecified osteoarthritis, unspecified site; E78.5 Hyperlipidemia, unspecified; F41.9 Anxiety disorder, unspecified; J30.2 Other seasonal allergic rhinitis; Z87.891 Personal history of nicotine dependence; Z79.01 Long term (current) use of anticoagulants
CPT/HCPCS: 36415; 80053; 82565; 83735; 83880; 84100; 85014; 85018; 85025; 85610; 85730; 86850; 86900; 86901; 96375; 96376; 99284; A9270; C9113; G0378; J2704; J3010; J7030; J7120; U0004

== ENCOUNTER → 2020-10-10 | Outpatient (CLI) | payer OTHER ==
[~2020-10-10] MED LIST changes: +PANT20 PO; +WARF7.5 PO
[2020-10-10 20:28] LABS: BASOPHILS ABSOLUTE AUTO 0.03 K/mm3 (0.00-0.23); BASOPHILS PERCENT AUTO 0 % (0-2); EOSINOPHILS ABSOLUTE AUTO 0.12 K/mm3 (0.00-0.68); EOSINOPHILS PERCENT AUTO 2 % (0-6); Hematocrit 22.8 % (37.0-53.0); Hemoglobin 6.9 g/dL (13.5-17.5); IMMATURE GRAN ABSOLUTE AUTO 0.02 K/mm3 (0.00-0.10); IMMATURE GRAN PERCENT AUTO 0 % (0-1); LYMPHOCYTES ABSOLUTE AUTO 1.13 K/mm3 (0.84-5.20); LYMPHOCYTES PERCENT AUTO 15 % (21-46); MONOCYTES ABSOLUTE AUTO 1.03 K/mm3 (0.16-1.47); MONOCYTES PERCENT AUTO 14 % (4-13); Mean Corpuscular HGB 23.7 pg (26.0-34.0); Mean Corpuscular HGB Conc 30.3 g/dL (31.5-36.5); Mean Corpuscular Volume 78 fL (80-100); Mean Platelet Volume 11.7 fL (9.1-12.4); NEUTROPHILS ABSOLUTE AUTO 5.05 K/mm3 (1.96-9.15); NEUTROPHILS PERCENT AUTO 68 % (41-73); Platelet Count 325 K/mm3 (150-400); RDW Coefficient Variation 18.4 % (11.7-14.2); RDW Standard Deviation 51.7 fL (35.1-46.3); Red Blood Cell Count 2.91 M/mm3 (4.30-5.90); White Blood Cell Count 7.38 K/mm3 (4.00-11.30)
[2020-10-10 20:37] LABS: Bun/Creatinine Ratio 27.4 (12.0-20.0); Calcium, Blood 8.4 mg/dL (8.5-10.1); Creatinine, Blood 2.01 mg/dL (0.60-1.20); Magnesium, Blood 2.7 mg/dL (1.6-2.4); Potassium, Blood 4.3 mmol/L (3.5-5.5)
== END | disposition home or self-care (01) ==
LOC: LAB SHORT 18:14
PROVIDERS: Hospitalist
DX: N18.32 Chronic kidney disease, stage 3b (principal); D63.1 Anemia in chronic kidney disease; D50.0 Iron deficiency anemia secondary to blood loss (chronic); R25.2 Cramp and spasm
CPT/HCPCS: 80048; 83735; 85025

== ENCOUNTER 2020-10-25 11:45 | Day surgery (SDC) | payer OTHER | END 2020-10-25 17:20 | disposition home or self-care (01) | LOC: ATC 11:45 → EDSTATUS 11:46 → ATC 17:20 | DX: D50.0 Iron deficiency anemia secondary to blood loss (chronic) (principal) | CPT/HCPCS: 36415; 36430; 86850; 86900; 86901; 86923; J7050; P9016 ==

== ENCOUNTER 2021-03-14 08:57 | Day surgery (SDC) | payer OTHER ==
[~2021-03-14] VITALS: Ht 175.3 cm; Wt 92.1 kg
[~2021-03-14 08:57] MED LIST changes: +FURO40 PO; +TRAZ100 PO
[2021-03-14] MEDS ORDERED: ALPR.25 (09:48)
== END 2021-03-14 10:55 | disposition home or self-care (01) ==
LOC: ORSCSDS 08:57
PROVIDERS: Surgery
PROC: 0DBK8ZX Excision of Ascending Colon, Via Natural or Artificial Opening Endoscopic, Diagnostic (ICD-10-PCS; principal; 2021-03-14 10:30)
DX: Z12.11 Encounter for screening for malignant neoplasm of colon (principal); Z86.010 Personal history of colon polyps; D12.2 Benign neoplasm of ascending colon; I48.91 Unspecified atrial fibrillation; I10 Essential (primary) hypertension; E78.5 Hyperlipidemia, unspecified; F41.9 Anxiety disorder, unspecified; K57.30 Diverticulosis of large intestine without perforation or abscess without bleeding; Z79.899 Other long term (current) drug therapy
CPT/HCPCS: 88305; J2704; J7120

== ENCOUNTER → 2022-09-16 | Outpatient (CLI) | payer OTHER ==
[~2022-09-16] MED LIST changes: +ALPR.25
[2022-09-16 15:54] LABS: BASOPHILS ABSOLUTE AUTO 0.04 K/mm3 (0.00-0.23); BASOPHILS PERCENT AUTO 1 % (0-2); EOSINOPHILS ABSOLUTE AUTO 0.48 K/mm3 (0.00-0.68); EOSINOPHILS PERCENT AUTO 7 % (0-6); Hematocrit 46.7 % (37.0-53.0); IMMATURE GRAN ABSOLUTE AUTO 0.04 K/mm3 (0.00-0.10); IMMATURE GRAN PERCENT AUTO 1 % (0-1); LYMPHOCYTES ABSOLUTE AUTO 1.47 K/mm3 (0.84-5.20); LYMPHOCYTES PERCENT AUTO 21 % (21-46); MONOCYTES ABSOLUTE AUTO 0.58 K/mm3 (0.16-1.47); MONOCYTES PERCENT AUTO 8 % (4-13); Mean Corpuscular HGB 30.9 pg (26.0-34.0); Mean Corpuscular HGB Conc 32.1 g/dL (31.5-36.5); Mean Corpuscular Volume 96 fL (80-100); Mean Platelet Volume 11.2 fL (9.1-12.4); NEUTROPHILS ABSOLUTE AUTO 4.47 K/mm3 (1.96-9.15); NEUTROPHILS PERCENT AUTO 63 % (41-73); Platelet Count 280 K/mm3 (150-400); RDW Coefficient Variation 13.9 % (11.7-14.2); Red Blood Cell Count 4.86 M/mm3 (4.30-5.90); White Blood Cell Count 7.08 K/mm3 (4.00-11.30)
[2022-09-16 16:02] LABS: Alanine Aminotransfer (ALT/SGP 18 U/L (12-78); Albumin/Globulin Ratio 1.2 (0.8-1.8); Alk Phos 51 U/L (50-136); Anion Gap 5 mmol/L (6-16); Aspartate Aminotrans (AST/SGOT 14 U/L (12-37); Bilirubin, Total 0.5 mg/dL (0.1-1.0); Blood Urea Nitrogen 16 mg/dL (8-24); Bun/Creatinine Ratio 11.9 (12.0-20.0); CHOL/HDL RATIO 4.3; CO2, Blood 28 mmol/L (21-32); Calcium, Blood 9.2 mg/dL (8.5-10.1); Chloride, Blood 109 mmol/L (98-108); Cholesterol 172 mg/dL (50-200); Creatinine, Blood 1.34 mg/dL (0.60-1.20); Globulin, Blood 3.4 g/dL (2.2-4.0); Glomerular Filtration Rate 55 (60-); Glucose, Blood 108 mg/dL (70-99); HDL Cholesterol 40 mg/dL (>39); LDL/HDL RATIO 2.6; Low Density Lipoprotein Chol 104 mg/dL (0-110); Potassium, Blood 4.6 mmol/L (3.5-5.5); Sodium, Blood 142 mmol/L (136-145); Total Protein, Blood 7.4 g/dL (6.4-8.2); Triglycerides 140 mg/dL (30-160); Very Low Density Lipoprot Chol 28 mg/dL (6-32)
== END | disposition home or self-care (01) ==
LOC: LAB 13:23 → LAB SHORT 13:23
PROVIDERS: Hospitalist
DX: I12.9 Hypertensive chronic kidney disease with stage 1 through stage 4 chronic kidney disease, or unspecified chronic kidney disease (principal); N18.32 Chronic kidney disease, stage 3b; E78.5 Hyperlipidemia, unspecified
CPT/HCPCS: 80053; 80061; 83970; 85025

== ENCOUNTER → 2024-07-26 | Outpatient (CLI) | payer OTHER ==
[2024-07-26 15:41] LABS: Alanine Aminotransfer (ALT/SGP 25 U/L (12-78); Alk Phos 52 U/L (50-136); Anion Gap 9 mmol/L (3-11); Aspartate Aminotrans (AST/SGOT 16 U/L (12-37); Bilirubin, Total 0.7 mg/dL (0.1-1.0); Blood Urea Nitrogen 35 mg/dL (8-24); Bun/Creatinine Ratio 18.1 (12.0-20.0); CHOL/HDL RATIO 3.9; CO2, Blood 29 mmol/L (21-32); Chloride, Blood 102 mmol/L (98-108); Cholesterol 152 mg/dL (50-200); Creatinine, Blood 1.93 mg/dL (0.60-1.20); Globulin, Blood 3.9 g/dL (2.2-4.0); Glomerular Filtration Rate 35 (60-); Glucose, Blood 126 mg/dL (70-99); HDL Cholesterol 39 mg/dL (>39); LDL/HDL RATIO 2.1; Low Density Lipoprotein Chol 81 mg/dL (0-110); Potassium, Blood 4.2 mmol/L (3.5-5.5); Sodium, Blood 136 mmol/L (136-145); Total Protein, Blood 7.9 g/dL (6.4-8.2); Triglycerides 158 mg/dL (30-160); Very Low Density Lipoprot Chol 31 mg/dL (6-32)
== END ==
LOC: LAB 10:40 → LAB SHORT 10:40
PROVIDERS: Hospitalist
DX: E78.5 Hyperlipidemia, unspecified (principal); I12.9 Hypertensive chronic kidney disease with stage 1 through stage 4 chronic kidney disease, or unspecified chronic kidney disease; N18.32 Chronic kidney disease, stage 3b
CPT/HCPCS: 80053; 80061; 83970